=== PATIENT | female | born 2000 | race Caucasian/White ===

== ENCOUNTER 2019-04-06 18:30 | Outpatient (CLI) | payer BC ==
[~2019-04-06 18:30] MED LIST: ACET500C5 PO
[2019-04-06 18:43] VITALS: BP 128/75; PULSE 84; RESP 18
--- NOTE | 2019-04-06 20:22 | PN ---
Triage Information Date/Time April 06, 2019 Reason for visit: DFHR Weeks of Gestation 38 weeks /Para 1 para 0 Diabetes: none Hypertention: none Additional information 18-year-old G1, P0 with IUP at 38 weeks and care with [facility] and other [facility] presented to triage, was sent from the office due to NST/BPP due to decreased movement. Patient denies any leaking of fluid, vaginal bleeding or contractions. She denies any complication during her course. Objective Vital Signs Date Temp Pulse Resp B/P (MAP) Pulse Ox O2 O2 Flow FiO2 Time Delivery Rate 04/06/19 98.4 84 18 128/75 98 Room Air 18:43 (92) Heart Rate: 130's Heart Rate Comments NST category 1 and appropriate for gestational age and reactive No contraction on the monitor noted BP: 8/8 Contractions: None Exam Appearance: Alert and oriented x4 does not appear to be in any acute distress Abdomen: Soft, gravid, fundal height correlate with gestational age NST: Category 1 BP: 8/8 Amniotic fluid: 7.7 Results/Medications Imaging Results PROCEDURE: US Obstetrical , limited CLINICAL INDICATION: Biophysical profile for well being, decreased movement. TECHNIQUE: Multiple real-time images were acquired of the patient's maternal abdomen utilizing a curved array transducer. COMPARISON: 03/03/2019 FINDINGS: There is a single live intrauterine fetus in a cephalic presentation. The placenta is implanted anteriorly and is grade II. There is no placenta previa or abruptio evident. The amniotic fluid index measures 7.7 cm. The heart rate is 134 beats per minute. Biophysical profile: Tone: 2 breathin Gross body movement: 2 Amniotic fluid: 2 Biophysical profile score: 8/8 IMPRESSION: 1. Single live intrauterine fetus, cephalic presentation, unchanged. The heart rate is 134 bpm. 2. Anterior placenta, grade 2, no previa or abruptio is evident. 3. Amniotic fluid index 7.7 cm. 4. Biophysical profile score: 8/8. Disposition: Discharge Assessment/Plan IUP at 38 weeks ABHI: 7.7 cm Borderline low amniotic fluid noted Patient feels movement after hydration testing reassuring. No evidence of labor or SROM noted Patient will be discharged home. Strict labor precautions kick counts and follow-up less than 48 hours after hydration for repeat ABHI discussed with the patient Patient verbalized understanding. All questions were answered to patient with satisfaction. She will return to triage on Thursday to repeat ABHI after aggressive hydration. TONI MENDOZA MD Apr 06, 2019 20:22
== END 2019-04-06 20:35 | disposition home or self-care (01) ==
LOC: OBT 18:30 → L-D 18:34 → OBT 20:35
PROVIDERS: ATTEND Obstetrics & Gynecology
DX: O36.8130 Decreased fetal movements, third trimester, not applicable or unspecified (principal); Z3A.38 38 weeks gestation of pregnancy
CPT/HCPCS: 76818; Z7500; G0463

== ENCOUNTER 2019-04-08 15:58 | Outpatient (CLI) | payer BC ==
[~2019-04-08] VITALS: Ht 154.9 cm; Wt 79.9 kg
[2019-04-08 17:10] VITALS: Ht 154.9 cm; Wt 79.9 kg
[2019-04-08 17:11] VITALS: BP 111/66; PULSE 72; RESP 18
[2019-04-08] MEDS ORDERED: PNV11TAB PO (17:13)
--- NOTE | 2019-04-08 19:25 | PN ---
Triage Information Date/Time 04/08/1902/20/1923 Reason for visit: Oligohydramnios Weeks of Gestation 39w2d /Para Objective Vital Signs Date Temp Pulse Resp B/P (MAP) Pulse Ox O2 O2 Flow FiO2 Time Delivery Rate 04/08/19 98.5 72 18 111/66 17:11 (81) Results/Medications Results 24 hrs Laboratory Tests Test 04/08/19 17:06 Urine Color STRAW Urine Clarity CLEAR Urine pH 6.0 Urine Specific [place] 1.004 Urine Ketones NEGATIVE Urine Nitrite NEGATIVE Urine Bilirubin NEGATIVE Urine Urobilinogen NEGATIVE Urine Leukocyte Esterase NEGATIVE Urine Hemoglobin NEGATIVE Urine Glucose NEGATIVE Urine Total Protein NEGATIVE Imaging Results BPP 8/ ABHI 12.3 Disposition: Discharge Assessment/Plan A IUp 39w2d normal ABHI P RTH prn with routine labor instructions TARA BRAND MD Apr 08, 2019 19:25
--- NOTE | 2019-04-08 22:06 | TRIAGE ---
OB Triage Datetime Report Generated by CPN: 04/08/2019 22:05 Datetime: 04/08/2019 21:53 Labor Evaluation Frequency: 1-5 Monitor Mode: External Duration (sec)2399: 30-60 Quality: Mild Pattern: Normal: <= 5 Contractions in 10 Minutes Resting Tone [place]: Relaxed Heart Rate FHR Baseline Rate: 130 Monitor Mode: External US Variability: Moderate 6-25 bpm Accelerations: 15X15 Decelerations: None Category: Category I Comments: REVIEWED BY REBECCA JASSO TO D/C HOME Datetime: 04/08/2019 21:00 Labor Evaluation Frequency: 1-5 Monitor Mode: External Duration (sec)2399: 30-100 Quality: Mild Pattern: Normal: <= 5 Contractions in 10 Minutes Resting Tone [place]: Relaxed Heart Rate FHR Baseline Rate: 130 Monitor Mode: External US Variability: Moderate 6-25 bpm Accelerations: 15X15 Decelerations: None Category: Category I Datetime: 04/08/2019 20:11 Vaginal Exam Dilatation (cms): 0.0 Effacement (%): 0 Station: -3 Exam By: MICK Membrane Status: Intact Vaginal Bleeding: None Cervix, Consistency: Firm Cervix, Position: Posterior Presentation 'A': Cephalic Datetime: 04/08/2019 20:00 Labor Evaluation Frequency: IRREG Monitor Mode: External Duration (sec)2399: 30-80 Quality: Mild Pattern: Normal: <= 5 Contractions in 10 Minutes Resting Tone [place]: Relaxed Heart Rate FHR Baseline Rate: 130 Monitor Mode: External US Variability: Moderate 6-25 bpm Accelerations: 15X15 Decelerations: None Category: Category I Datetime: 04/08/2019 19:17 Assessment Type: Triage Maternal Assessment Level of Consciousness: Keenly Alert, Responsive DTR's/Clonus: DTRs 2+; No Clonus Headache: Denies Blurred Vision: No Respiratory Effort: Unlabored; Regular Rhythm; Equal Expansion Nausea/Vomiting: Denies RUQ Epigastric Pain: Denies Lower Extremities Edema: None Degree: None Upper Extremities Edema: None Degree: None Facial Edema: None Fall Risk Assessment History of Falling: (0) No Secondary Diagnosis: (0) No Ambulatory Aid: (0) Bedrest/Nurse Assist IV Therapy: (0) No Gait: (0) Normal/Bedrest/Immobile Mental Status: (0) Oriented to Own Ability Fall Score: 0 Fall Risk Score Definition: No Risk: No action required Pain Assessment Pain Scale: 0 Pain Presence: None/Denies Pain Type: N/A Datetime: 04/08/2019 17:21 Stage of : OB Triage Datetime: 04/08/2019 17:04 Stage of : OB Triage Assessment Type: Triage Maternal Assessment Level of Consciousness: Keenly Alert, Responsive DTR's/Clonus: DTRs 2+; No Clonus Headache: Denies Blurred Vision: No Respiratory Effort: Unlabored; Regular Rhythm; Equal Expansion Breath Sounds, Left: Clear and Equal Breath Sounds, Right: Clear and Equal Nausea/Vomiting: Denies RUQ Epigastric Pain: Denies Facial Edema: None Temperature Route: Axillary Fall Risk Assessment History of Falling: (0) No Secondary Diagnosis: (0) No Ambulatory Aid: (0) Bedrest/Nurse Assist IV Therapy: (0) No Gait: (0) Normal/Bedrest/Immobile Mental Status: (0) Oriented to Own Ability Fall Score: 0 Fall Risk Score Definition: No Risk: No action required Labor Evaluation Frequency: 0 Monitor Mode: External Pattern: Normal: <= 5 Contractions in 10 Minutes Resting Tone [place]: Relaxed Heart Rate FHR Baseline Rate: 145 Monitor Mode: External US Variability: Moderate 6-25 bpm Accelerations: 10X10 Decelerations: None Category: Category I Pain Assessment Pain Scale: 5 Pain Presence: Intermittent (Annotations: WHEN MAKING A SUDDEN MOVEMENT OR ROLLING OVER) Pain Type: Ache Pain Location: Perineum Pain Goal: 3 Pain Relief Measures: Comfort Measures Datetime: 04/08/2019 17:02 Time of Arrival: 04/08/2019 15:50 EGA: 39.2 Arrived By: Ambulatory Arrived From: Home Chief Complaint: FOLLOW UP LOW ABHI, DENIES BLEEDING, LEAKING OR UC'S Movement: Present Contractions: Denies/Absent Rupture of Membranes: Denies Vaginal Bleeding: None Vaginal Discharge: Denies Recent Sexual Intercouse: Denies Abdominal Trauma: Not Applicable Patient Complaints: None Time Provider Notified: 04/08/2019 17:20 Provider Notified: michell Initial Plan: MONITOR, BPP, u/a c_S Datetime: 04/06/2019 19:54 Stage of : OB Triage Datetime: 04/06/2019 19:42 Stage of : OB Triage Heart Rate FHR Baseline Rate: 150 FHR Baseline Changes: No Baseline Change Variability: Moderate 6-25 bpm Accelerations: 15X15 Decelerations: None Category: Category I Pain Presence: None/Denies Pain Type: N/A Datetime: 04/06/2019 19:22 Membrane Status: Intact Datetime: 04/06/2019 19:21 Stage of : OB Triage Respiratory Effort: Unlabored Breath Sounds, Left: Clear and Equal Breath Sounds, Right: Clear and Equal Labor Evaluation Frequency: OCCAS UTERINE IRRIT Monitor Mode: External Duration (sec)2399: 10-20 Pattern: Normal: <= 5 Contractions in 10 Minutes Resting Tone [place]: Relaxed Heart Rate FHR Baseline Rate: 150 Monitor Mode: External US FHR Baseline Changes: No Baseline Change Variability: Moderate 6-25 bpm Accelerations: 15X15 Decelerations: None Category: Category I Pain Assessment Pain Scale: 0 Pain Presence: None/Denies Pain Type: N/A Pain Assessment Comments: PATIENT STATES NO PRESSURE OR PAIN FELT Membrane Status: Intact Datetime: 04/06/2019 18:37 Stage of : OB Triage Time of Arrival: 04/06/2019 18:37 EGA: 39.0 Arrived By: Ambulatory Arrived From: Home Chief Complaint: sent from clinic for NST BPP for decreased movements Movement: Present Contractions: Denies/Absent Rupture of Membranes: Denies Vaginal Bleeding: None Vaginal Discharge: Denies Recent Sexual Intercouse: Denies Abdominal Trauma: Not Applicable Patient Complaints: None; Other Time Provider Notified: 04/06/2019 19:45 Provider Notified: DR LEE Initial Plan: NST/ BPP Maternal Assessment Level of Consciousness: Keenly Alert, Responsive DTR's/Clonus: DTRs 2+; No Clonus Headache: Denies Blurred Vision: No Respiratory Effort: Unlabored; Regular Rhythm; Equal Expansion Breath Sounds, Left: Clear and Equal Breath Sounds, Right: Clear and Equal Nausea/Vomiting: Denies RUQ Epigastric Pain: Denies Lower Extremities Edema: Bilateral Lower Extremities Degree: 1+ Upper Extremities Edema: None Degree: None Facial Edema: None Temperature Route: Oral Fall Risk Assessment History of Falling: (0) No Secondary Diagnosis: (0) No Ambulatory Aid: (0) Bedrest/Nurse Assist IV Therapy: (0) No Gait: (0) Normal/Bedrest/Immobile Mental Status: (0) Oriented to Own Ability Fall Score: 0 Fall Risk Score Definition: No Risk: No action required Monitor Mode: External Heart Rate FHR Baseline Rate: 145 Monitor Mode: External US Pain Assessment Pain Scale: 0
== END 2019-04-08 22:00 | disposition home or self-care (01) ==
LOC: L-D 15:58 → OBT 15:58 → L-D 16:22 → OBT 22:00
PROVIDERS: ATTEND Obstetrics & Gynecology
DX: O41.03X0 Oligohydramnios, third trimester, not applicable or unspecified (principal); Z3A.39 39 weeks gestation of pregnancy
CPT/HCPCS: 76818; 81003; 87086; Z7500; G0463

== ENCOUNTER 2019-04-14 09:00 | Inpatient (IN) | payer BC ==
[~2019-04-14] VITALS: Ht 154.9 cm; Wt 80.7 kg
[~2019-04-14 09:00] MED LIST changes: +PNV11TAB PO
[2019-04-14] MEDS ORDERED: LACTATED RINGER'S 1,000 ML IV PRN (10:23)
[2019-04-14 10:30] VITALS: Ht 154.9 cm; Wt 80.7 kg
[2019-04-14] MEDS ORDERED: IBUPROFEN 600 MG TAB PO PRN (10:30)
[2019-04-14] MEDS ORDERED: AMPICILLIN 2 GM/NS (PMX) 100 ML IV ONE (10:30)
[2019-04-14] MEDS ORDERED: OXYTOCIN 30 UNITS/LR 500 ML IV PRN (10:30)
[2019-04-14] MEDS ORDERED: OXYTOCIN 30 UNITS/LR 500 ML IV SCH ×2 (10:30)
[2019-04-14] MEDS ORDERED: METHYLERGONOVINE 0.2 MG INJ IM PRN (10:30)
[2019-04-14] MEDS ORDERED: BUTORPHANOL 2 MG INJ IV PRN ×2 (10:30)
[2019-04-14] MEDS ORDERED: LIDOCAINE 1% (MPF) 30 ML INJ INJ PRN (10:30)
[2019-04-14] MEDS ORDERED: CARBOPROST 250 MCG INJ IM PRN (10:30)
[2019-04-14] MEDS ORDERED: MISOPROSTOL 200 MCG TAB PR PRN (10:30)
[2019-04-14] MEDS: LACTATED RINGER'S 1,000 ML IV SCH ×2 (11:10→19:02)
[2019-04-14] MEDS: MISOPROSTOL 50 MCG CAPSULE PO SCH ×2 (12:30→16:29)
--- NOTE | 2019-04-14 15:13 | CONS ---
DATE OF ADMISSION: 04/14/2019 DATE OF CONSULTATION: 04/14/2019 DATE OF CONSULTATION: 04/14/2019. REASON FOR CONSULTATION: Preoperative evaluation prior to planned induction. HISTORY OF PRESENT ILLNESS: The patient is a 18-year-old female, G1, P0, at 40 weeks of with a history of congenital heart disease and surgery as a child who initially presented with a murmur and abnormal electrocardiogram. The patient had no complaints of significant dyspnea on exertion, chest pains. The patient, in evaluation, underwent a 2D echo that did reveal the patient to have a preserved ejection fraction with mild tricuspid regurgitation, trace mitral regurgitation, and a very mild pulmonic stenosis with a max peak gradient of 25 . Additionally, they have also obtained the patient's 2D echo done for a evaluation by small lot operator in 2017, and, at that time, the patient was noted to have a very minimal right to left shunting across a residual small VSD patch leak with a pulmonic gradient of 18, consistent with very mild pulmonic stenosis. PAST MEDICAL HISTORY: As above in HPI. MEDICATIONS CURRENTLY IN HOSPITAL: 1. Ampicillin. 3. IV fluid hydration. ALLERGIES: NO KNOWN DRUG ALLERGIES. SOCIAL HISTORY: No current tobacco, ETOH or illicit drug use. FAMILY HISTORY. No sudden cardiac or early CAD. REVIEW OF SYSTEMS: As above in HPI. CONSTITUTIONAL: No fevers, chills. PULMONARY: No current shortness of breath. CARDIOVASCULAR: Pulmonic stenosis, mild. GASTROINTESTINAL: No vomiting. GENITOURINARY: Notable for . MUSCULOSKELETAL: No significant myalgias or arthralgias. ENDOCRINE: No documented history of diabetes or thyroid disease. PHYSICAL EXAMINATION: VITAL SIGNS: Notable for afebrile, blood pressure 125/60, pulse 75. GENERAL: The patient is alert, awake, in no acute distress. NECK: JVP approximately 8 to 9 cm of water. CHEST: Fair air movement throughout. HEART: Regular rate and rhythm. Normal S1, S2. II/ systolic murmur. ABDOMEN: Positive bowel sounds, soft, notable for . EXTREMITIES: No significant pitting edema, 1+ pulses bilateral posterior tibial. LABORATORY DATA: From today, white count 10.5, hemoglobin 11.8, platelet count of 258. INR 0.85. IMAGING STUDIES: As above in HPI. No further imaging studies for my review at this time. ECG: No electrocardiograms for my review at this time. IMPRESSION: 1. Preoperative evaluation prior to planned induction for delivery of a 40-week infant in a patient with a history of congenital heart disease, status post- surgery as a child. 2. Pulmonic stenosis by 2D echo without significant change from echo from 2017 to now revealing very mild pulmonic stenosis which not to have hemodynamic consequence during this procedure with normal RV function. 3, H/O VSD s/p patch repair with no significant leak noted by echo 03/04/19 3. at 40 weeks. 4. Abnormal electrocardiogram with a history of baseline right bundle branch block and no signs of higher degrees of block. RECOMMENDATIONS: 1. At this time, would obtain a 12-lead EKG, no documented in the chart, and would check EKG post-delivery. Assess for any significant changes. 2. At this time, the patient is okay to proceed with induction given very mild pulmonic stenosis and as possible, would attempt to avoid significant swings in blood pressure or large fluid shifts, but induction and delivery should be tolerated well, given the very mild nature of the patient's pulmonic stenosis. 3. We will continue to follow along very closely with you postoperatively. Thank you for allowing me to take part in the care of this patient. I will continue to follow very closely with you with further recommendations to be made as the patient progresses through inpatient hospital clinical course. Dictated By: MIKHAIL EARL/MARTHA Conf#: [id number] DID#: [id number] CC: SILVERIO SON MD;*EndCC* MTDD
[2019-04-14] MEDS: AMPICILLIN 1 GM/NS (PMX) 50 ML IV SCH ×2 (16:29→20:34)
--- NOTE | 2019-04-14 17:10 | HP ---
Date/Time of Note Date/Time of Note DATE: 04/14/19 TIME: 17:08 OB - History Hx of Present Free Text/Dictation 18-year-old female 1 para 0 at 40 weeks plus gestation admitted for elective induction of labor Patient with possible right bundle branch block and had clearance of healthcare facility administrator on day of admission for induction Last Menstrual Period: Jun 08, 2018 Estimated Due Date: Apr 14, 2019 : 1 Para: 0 Care: Good Care Obstetrical Complications: None Medical Complications: None Past Family/Social History * Past Medical, Surgical, Family and Obstetric Histories reviewed from chart. Blood Type: O+ Rubella: immune RPR/VDRL: Negative GBS Status: Positive HBsAG: Negative OB Admission Exam Physical Exam HEENT: WNL Heart: Rhythm Normal Lungs: Clear, Equal Abdomen: WNL Extremities: Normal Reflexes: Normal Cervical Dilatation: None Effacement: 0% Station: -3 Membranes: Intact Heart Rate: 140's Accelerations: Accelerations Present Decelerations: No Decelerations Varibility: Marked Contractions on Admission: None Last 72 hours Lab Results CBC & BMP 04/14/19 10:22 OB Assessment/Plan Reason for admission: induction of labor Other Assessment: Term gestation Patient was cleared by healthcare facility administrator for induction Other plan: Start induction using Cytotec SILVERIO SON MD Apr 14, 2019 17:10
--- NOTE | 2019-04-14 19:13 | RADRPT ---
Vent Rate: 72 bpm RR Interval: 828 msec IN Interval: 138 msec QRS Duration: 134 msec QT Interval: 418 msec QTC Interval: 459 msec P-R-T Adams: 36 - 72 - 56 degrees Sinus rhythm...normal P axis, V-rate 50- 99 Right bundle branch block...QRSd>120, terminal axis(90,270) Electronically Signed By: Eliazar Pineda
[2019-04-14] MEDS ORDERED: FENTAnyl 2MCG/ML-ROPIV 0.2% 100 ML ONE (23:10)
--- NOTE | 2019-04-14 23:13 | PREAC ---
Date/Time of Note Date/Time of Note DATE: 04/14/19 TIME: 23:12 Anesthesia Eval and Record Evaluation Time Pre-Procedure Interview DATE: 04/14/19 TIME: 23:12 Age 18 Sex female NPO: 8 hrs Preoperative diagnosis labor Planned procedure epidural Past Medical History Past Medical History: Includes Cardio: Other (congenital heart disease with mild pul stenosis ) Surgery & Anesthesia Issues No known issue Meds Anticoagulation: No Beta Lilibeth within 24 hr: No Reason Beta Lilibeth not given: Pt. not on B-Lilibeth Active Scripts Acetaminophen* (Tylophen*) 500 Mg Capsule, 1 CAP PO Q6H PRN for PAIN AND OR ELEVATED TEMP, #14 CAP Prov:ROBSON CANADA MD 04/02/16 Reported Medications [id number] ( ) 1 Each Tablet, 1 TAB PO DAILY, TAB 04/08/19 Current Medications Lactated Ringer's 1,000 ml @ 125 mls/hr Q8H IV Last administered on 04/14/19at 19:02; Admin Dose 125 MLS/HR; Start 04/14/19 at 10:23 Ampicillin 50 ml @ 100 mls/hr Q4H IV Last administered on 04/14/19at 20:34; Admin Dose 100 MLS/HR; Start 04/14/19 at 14:30 Butorphanol Tartrate (Stadol) 1 mg Q2H PRN IV .PAIN SCALE 1-5; Start 04/14/19 at 10:30 Butorphanol Tartrate (Stadol) 2 mg Q2H PRN IV .PAIN SCALE 6-10; Start 04/14/19 at 10:30 Lidocaine (Xylocaine 1% (Mpf)) 30 ml ONCE PRN INJ .EPISIOTOMY; Start 04/14/19 at 10:30 Oxytocin/Lactated Ringer's 500 ml @ 500 mls/hr ONCE POST IV ; Start 04/14/19 at 10:30 Oxytocin/Lactated Ringer's 500 ml @ 125 mls/hr POST IV ; Start 04/14/19 at 10:30 Ibuprofen (Motrin) 600 mg ONCE PRN PO .PAIN 1-5; Start 04/14/19 at 10:30 Lactated Ringer's 1,000 ml @ 2,000 mls/hr Q30M PRN IV .ANESTHESIA; Start 04/14/19 at 10:23 Oxytocin/Lactated Ringer's 500 ml @ 0 mls/hr ONCE PRN IV .VAGINAL BLEEDING; Start 04/14/19 at 10:30 Methylergonovine Maleate (Methergine) 0.2 mg ONCE PRN IM .VAGINAL BLEEDING; Start 04/14/19 at 10:30 Carboprost Tromethamine (Hemabate) 250 mcg ONCE PRN IM .VAGINAL BLEEDING; Start 04/14/19 at 10:30 Misoprostol (Cytotec) 1,000 mcg ONCE PRN NV .VAGINAL BLEEDING; Start 04/14/19 at 10:30 Misoprostol (Cytotec 50 Mcg Capsule) 50 mcg Q4 PO Last administered on 04/14/19at 16:29; Admin Dose 50 MCG; Start 04/14/19 at 13:00 Meds reviewed: Yes Allergies Coded Allergies: No Known Allergy (Unverified , 04/02/16) Allergies Reviewed: Yes Labs/Studies Labs Reviewed: Reviewed by anesthesiologist Result Diagram: 04/14/19 1022 Laboratory Tests 04/14/19 10:22 Blood Bank Test 04/14/19 10:22 Antibody Screen NEGATIVE Blood Type O POSITIVE Rh Immune Globulin Candidate NO test: N/A Pre-procedure Exam Airway: Adequate mouth opening, Adequate thyromental dist Mallampati: Mallampati III Teeth: Normal Lung: Normal Heart: Normal ASA Physical Status ASA physical status: 2 Emergency: None Pre-operative Attestations Prior to commencing anesthesia and surgery, the patient was re-evaluated, there was verification of: *The patient's identity *The results of appropriate recent lab work and preoperative vital signs *The above evaluation not changing prior to induction *Anesthetic plan, risk benefits, alternative and complications discussed with pa deana/family; questions answered; patient/family understands, accepts and wishes to proceed. TOY ESTRADA DO Apr 14, 2019 23:13
[2019-04-14] MEDS ORDERED: FENTAnyl 2MCG/ML-ROPIV 0.2% 100 ML BAG EPI SCH (23:30)
[2019-04-14] MEDS ORDERED: NALOXONE (0.4 MG/ML) INJ IV PRN (23:30)
[2019-04-15] VITALS (7 sets, daily range): BP systolic 100–122; BP diastolic 49–56; PULSE 75–90; RESP 17–19
[2019-04-15] MEDS: LACTATED RINGER'S 1,000 ML IV SCH (00:17)
[2019-04-15] MEDS: AMPICILLIN 1 GM/NS (PMX) 50 ML IV SCH ×2 (00:17→06:01)
[2019-04-15] MEDS ORDERED: LACTATED RINGER'S 1,000 ML IV* SCH (06:23)
[2019-04-15] MEDS ORDERED: OXYTOCIN 30 UNITS/LR 500 ML IV SCH (06:23)
--- NOTE | 2019-04-15 06:23 | LDN ---
Date/Time of Note Date/Time of Note DATE: 04/15/19 TIME: 06:20 Delivery Summary of a viable babyboy weighing 3025 grams or 6# 11 oz, 19.5 " long, and with Apgars of 9/9. Weeks of Gestation 40w 2d Placenta Delivered: Spontaneously Meconium: none Episiotomy: No Perineal laceration: 2 Laceration repair: 2nd degree perineal laceration repaired with 3-0 chromic. Anesthesia type: Epidural Estimated blood loss: 200 Sponge & Needle done & correct: Yes All needle counts correct: Yes Any foreign bodies felt in the: No (vagina) Delivery Information Sex Sex: male Apgars 1 Minute: 9 5 Minute: 9 Suctioning Nose & mouth suctioned at don: Yes Delee suction performed: No Umbilical Cord Umbilical cord with: 3 Vessels Cord presentations: nuchal cord Nuchal cord present X: 1 Cord Blood was obtained: Yes Mother & Baby Disposition Disposition Mom & Baby to Maternity; Good: Yes Baby to NICU: No HEMANTH VIVEROS MD Apr 15, 2019 06:23
[2019-04-15] MEDS ORDERED: METHYLERGONOVINE 0.2 MG INJ IM PRN ×2 (06:30→12:30)
[2019-04-15] MEDS ORDERED: OXYTOCIN 30 UNITS/LR 500 ML IV PRN ×2 (06:30→12:30)
[2019-04-15] MEDS ORDERED: CARBOPROST 250 MCG INJ IM PRN ×2 (06:30→12:30)
[2019-04-15] MEDS ORDERED: MISOPROSTOL 200 MCG TAB PR PRN ×2 (06:30→12:30)
[2019-04-15] MEDS ORDERED: HYDROCODONE/APAP (5/325) TAB PO PRN ×3 (06:30→12:30)
[2019-04-15] MEDS ORDERED: BENZOCAINE 20% 56 ML SPRAY TOP PRN ×2 (06:30→12:30)
[2019-04-15] MEDS ORDERED: LANOLIN HPA 1 PKT TOP PRN ×2 (06:30→12:30)
[2019-04-15] MEDS ORDERED: IBUPROFEN 600 MG TAB PO ONE (08:30)
[2019-04-15] MEDS ORDERED: BUTORPHANOL 2 MG INJ ONE (09:18)
[2019-04-15] MEDS ORDERED: SOD CHLORIDE 0.9% 1,000 ML IV ONE (09:30)
[2019-04-15] MEDS ORDERED: FENTAnyl 50 MCG/ML VIAL ONE (09:34)
[2019-04-15] MEDS ORDERED: CEFAZOLIN 1 GM INJ ONE (09:34)
[2019-04-15] MEDS ORDERED: PROPOFOL 20 ML ONE (09:34)
[2019-04-15] MEDS ORDERED: MIDAZOLAM 1 MG/ML 2 ML INJ ONE (09:34)
--- NOTE | 2019-04-15 09:39 | PREAC ---
Date/Time of Note Date/Time of Note DATE: 04/15/19 TIME: 09:38 Anesthesia Eval and Record Evaluation Time Pre-Procedure Interview DATE: 04/15/19 TIME: 09:38 Age 18 Sex female NPO: 8 hrs Preoperative diagnosis post bleeding, retained placenta Planned procedure D&C and exam under anesthesia Past Medical History Past Medical History: Includes Heme: Anemia : : (1), Para: (1) Surgery & Anesthesia Issues No known issue Meds Anticoagulation: No Beta Lilibeth within 24 hr: No Reason Beta Lilibeth not given: Pt. not on B-Lilibeth Active Scripts Acetaminophen* (Tylophen*) 500 Mg Capsule, 1 CAP PO Q6H PRN for PAIN AND OR ELEVATED TEMP, #14 CAP Prov:ROBSON CANADA MD 04/02/16 Reported Medications [id number] ( 19) 1 Each Tablet, 1 TAB PO DAILY, TAB 04/08/19 Current Medications Oxytocin/Lactated Ringer's 500 ml @ 50 mls/hr Q10H IV Last administered on 04/15/19at 09:09; Admin Dose 50 MLS/HR; Start 04/15/19 at 06:23; Stop 04/15/19 at 16:22 Lactated Ringer's 1,000 ml @ 125 mls/hr Q8H IV* ; Start 04/15/19 at 06:23 Ibuprofen (Motrin) 600 mg Q6 PO ; Start 04/15/19 at 15:30 Acetaminophen/ Hydrocodone Bitart ([place] (5/325)) 1 tab Q4H PRN PO .PAIN 1-5; Start 04/15/19 at 06:30 Benzocaine (Dermoplast [place]) 1 spray BEDSIDE MEDICATION PRN TOP .HEMMORHOID/EPISIOTOMY PAIN; Start 04/15/19 at 06:30 Lanolin (Lanolin Hpa) 1 applic BEDSIDE MEDICATION PRN TOP .NIPPLES; Start 04/15/19 at 06:30 Diphtheria/ Tetanus/Acell Pertussis (Adacel) 0.5 ml ONCE ONCE IM* ; Start 04/17/19 at 09:00; Stop 04/17/19 at 09:01 Oxytocin/Lactated Ringer's 500 ml @ 0 mls/hr ONCE PRN IV .VAGINAL BLEEDING; Start 04/15/19 at 06:30 Methylergonovine Maleate (Methergine) 0.2 mg ONCE PRN IM .VAGINAL BLEEDING Last administered on 04/15/19at 09:11; Admin Dose 0.2 MG; Start 04/15/19 at 06:30 Carboprost Tromethamine (Hemabate) 250 mcg ONCE PRN IM .VAGINAL BLEEDING Last administered on 04/15/19at 09:11; Admin Dose 250 MCG; Start 04/15/19 at 06:30 Misoprostol (Cytotec) 1,000 mcg ONCE PRN IN .VAGINAL BLEEDING Last administered on 04/15/19at 09:19; Admin Dose 1,000 MCG; Start 04/15/19 at 06:30 Butorphanol Tartrate (Stadol) 2 mg ONCE ONCE IV Last administered on 04/15/19 09:28; Admin Dose 2 MG; Start 04/15/19 at 11:00; Stop 04/15/19 at 11:01 Sodium Chloride 1,000 ml @ 1,000 mls/hr Q1H ONCE IV ; Start 04/15/19 at 09:30; Stop 04/15/19 at 10:29 Meds reviewed: Yes Allergies Coded Allergies: No Known Allergy (Unverified , 04/02/16) Allergies Reviewed: Yes Labs/Studies Labs Reviewed: Reviewed by anesthesiologist Result Diagram: 04/14/19 1022 Laboratory Tests 04/14/19 10:22 Blood Bank Test 04/14/19 10:22 Antibody Screen NEGATIVE Blood Product Summary Counts Blood Type O POSITIVE Crossmatch Red Blood Cells Rh Immune Globulin Candidate NO test: Positive Studies: ECG (n/a), CXR (n/a) Pre-procedure Exam Airway: Adequate mouth opening, Adequate thyromental dist Mallampati: Mallampati II Teeth: Normal Lung: Normal Heart: Normal ASA Physical Status ASA physical status: 2 Emergency: E Planned Anesthetic General/MAC: ETT, LMA Planned Pain Management Parenteral pain med Pre-operative Attestations Prior to commencing anesthesia and surgery, the patient was re-evaluated, there was verification of: *The patient's identity *The results of appropriate recent lab work and preoperative vital signs *The above evaluation not changing prior to induction *Anesthetic plan, risk benefits, alternative and complications discussed with patient/family; questions answered; patient/family understands, accepts and wishes to proceed. POLO MERCHANT MD Apr 15, 2019 09:39
[2019-04-15] MEDS ORDERED: EPHEDrine 25 MG/5 ML SYG ONE ×2 (09:51→10:46)
[2019-04-15] MEDS ORDERED: ONDANSETRON 4 MG INJ ONE (09:51)
[2019-04-15] MEDS ORDERED: METOCLOPRAMIDE 10 MG INJ ONE (09:51)
[2019-04-15] MEDS ORDERED: DEXAMETHASONE 4 MG/ML 1 ML INJ ONE (09:51)
[2019-04-15] MEDS ORDERED: ALBUMIN HUMAN 5% 250 ML IV PRN (10:00)
[2019-04-15] MEDS ORDERED: FENTAnyl 50 MCG/ML VIAL IV PRN ×2 (10:00)
[2019-04-15] MEDS ORDERED: HYDROmorphONE 1 MG/5 ML IV SYRINGE IV PRN ×3 (10:00)
[2019-04-15] MEDS ORDERED: METOCLOPRAMIDE 10 MG INJ IV PRN (10:00)
[2019-04-15] MEDS ORDERED: ONDANSETRON 4 MG INJ IV PRN (10:00)
[2019-04-15] MEDS ORDERED: LABETALOL HCL 20MG INJ IV PRN (10:00)
[2019-04-15] MEDS ORDERED: MEPERIDINE 25 MG INJ IV PRN (10:00)
[2019-04-15] MEDS ORDERED: DIPHENHYDRAMINE 50 MG INJ IV PRN (10:00)
[2019-04-15] MEDS ORDERED: OXYCODONE/ACETAMINOPHEN (5/325) TAB PO PRN (10:00)
[2019-04-15] MEDS ORDERED: EPHEDrine 25 MG/5 ML SYG IV PRN (10:00)
[2019-04-15] MEDS ORDERED: HETASTARCH 6% NACL 500 ML ONE (10:42)
[2019-04-15] MEDS ORDERED: ALBUMIN HUMAN 5% 250 ML ONE (10:42)
--- NOTE | 2019-04-15 10:57 | QN ---
Documentation Comment Reported by Nurse,the patient had bleeding and received a dose of Hemabate and Methergine Cytotec 1000 given per rectum.Uterus if firm ,The decision is made to take her to OR for further evaluation ,Exam under anesthesia and possible D&C&Suction patient and her discussed extensively about the procedure, ,her attending informed and she is on his way to hospital Patient was taken to OR ,A large left vaginal vault was noticed that was repaired. At this time Got to the OR and took over the case,He repaired few butterfly laceration on right labia , Patient tolerated the procedure well and was transferred to Recovery room in stable condition,No Vaginal bleeding noticed at the end of case JOSEPH TATE M.D. Apr 15, 2019 10:57
[2019-04-15] MEDS ORDERED: BUTORPHANOL 2 MG INJ IV ONE (11:00)
--- NOTE | 2019-04-15 11:01 | PAC ---
Date/Time of Note Date/Time of Note DATE: 04/15/19 TIME: 11:01 Post-Anesthesia Notes Post-Anesthesia Note Last documented vital signs T: 96.7 Axillary Activity: WNL Respiratory function: WNL Cardiovascular function: WNL Mental status: Baseline Pain reasonably controlled: Yes Hydration appropriate: Yes Nausea/Vomiting absent: Yes POLO MERCHANT MD Apr 15, 2019 11:01
--- NOTE | 2019-04-15 11:10 | OPR ---
DATE OF OPERATION: 04/15/2019 PREOPERATIVE DIAGNOSIS: hemorrhage. POSTOPERATIVE DIAGNOSIS: Vaginal wall laceration, mostly on the right side down to the cervix. ATTENDING SURGEON: Chris Tate MD; Silverio Avina MD joined the team. ESTIMATED BLOOD LOSS: Less than 100. TECHNIQUE: The patient was taken to the operating room where general anesthesia was found to be adeq uate. The patient was placed in dorsal lithotomy position. After prep and drape, a weighted speculu m was placed inside the vaginal vault and the large laceration on the left vaginal vault was noticed that was repaired using 0 Vicryl and 2-0 Vicryl sutures. Hemostasis achieved on that side. A few la cerations on the other wall were repaired. At this time, Dr. Joe joined the team, and he is the p rivate physician for this patient. He took over and he repaired small laceration at the os and then hemostasis achieved. The patient tolerated the procedure well and was transferred to recovery room i n stable condition. There was no complication regarding this for the procedure. Dictated By: CHRIS TATE MD RG/NTS Conf#: [id number] DID#: [id number] CC: SILVERIO AVINA MD;*EndCC*
--- NOTE | 2019-04-15 11:27 | QN ---
Documentation Comment Was called for patient having profuse vaginal bleeding On-call physician was at patient bedside and decided to take the patient to the operating room for exam under anesthesia and possible dilatation and curettage if necessary With patient under general anesthesia on-call physician noticed a left-sided vaginal laceration which appeared deep and because the tissue was swollen the repair remained difficult however it was done. Dr. Galeana has dictated a s eparate note in regards to how the repair was performed Upon my arrival patient with vaginal packing and had superficial vaginal bleeding from the abrasions and hymen and introital tissues, these bleeding were controlled using 4-0 chromic multiple stitches and/or pressure on the tissue which stopped the bleeding The packs were removed and patient did not notice to have any further vaginal bleeding She was returned to supine position and was transferred to postanesthesia recovery room in stable condition SILVERIO SON MD Apr 15, 2019 11:27
[2019-04-15] MEDS ORDERED: ACETAMINOPHEN 1000MG/100ML IV 100 ML IVPB ONE (11:30)
[2019-04-15] MEDS ORDERED: CEFAZOLIN 2 GM/50 ML (PMX) 50 ML IVPB ONE (11:30)
[2019-04-15] MEDS: LACTATED RINGER'S 1,000 ML IV* SCH ×2 (12:29→22:26)
[2019-04-15] MEDS ORDERED: ZOLPIDEM 5 MG TAB PO PRN (12:30)
[2019-04-15] MEDS ORDERED: DIBUCAINE 1% 30 GM OINT TOP PRN (12:30)
--- NOTE | 2019-04-15 14:22 | CONS ---
Assessment/Plan Assessment/Plan Hospital Course (Demo Recall) IMPRESSION: 1. Preoperative evaluation prior to planned induction for delivery of a 40-week infant in a patient with a history of congenital heart disease, status post- surgery as a child.-now post-op s/p delivery c/b cervical laceration and sig blood loss requiring transfusion 2. Pulmonic stenosis by 2D echo without significant change from echo from 2017 to now revealing very mild pulmonic stenosis which not to have hemodynamic consequence during this procedure with normal RV function. 3. at 40 weeks.-now post-op s/p delivery 4. Abnormal electrocardiogram with a history of baseline right bundle branch block and no signs of higher degrees of block. 5. anemia-severe requiring transfusion 6. Cervical laceration c/b bleeding and severe anemia Recc: -OK to transfuse blood products/give IVF as necessary. Follow volume status and o2 saturation -Continue abx's -pain control Consultation Date/Type/Reason Admit Date/Time Apr 14, 2019 at 09:36 Initial Consult Date 04/14/19 Type of Consult Cardiology Reason for Consultation preop Requesting Provider: SILVERIO SON MD Date/Time of Note DATE: 04/15/19 TIME: 14:17 Exam/Review of Systems Vital Signs Vitals Intake and Output 04/14/19 04/14/19 04/15/19 1515:00 23:00 07:00 IntakeIntake Total 2100 ml 1625 ml OutputOutput Total 1565 ml BalanceBalance 2100 ml 60 ml Exam Exam Review of Systems: CONSTITUTIONAL: No fevers, chills. PULMONARY: No sob CARDIOVASCULAR: No chest pain/palpitations GASTROINTESTINAL: mild abd pain GENITOURINARY: No hematuria/dysuria. MUSCULOSKELETAL: No myagias/arthalgias. PSYCHIATRIC: The patient denies depression. NEUROLOGIC: No weakness Constitutional: alert, oriented Psych: no complaints Head: normocephalic ENMT: mucosa pink and moist Neck: supple, jvd (9 cm water) Respiratory: diminished breath sounds (at bases/B mildly) Cardiovascular: regular rate and rhythm Gastrointestinal: soft, non-tender Musculoskeletal: muscle tone (normal) Extremities: edema (trace/B) Neurological: other (No focal deficits) Labs Result Diagram: 04/15/19 1059 Results 24hrs Laboratory Tests Test 04/15/19 09:05 04/15/19 10:54 04/15/19 10:59 Bedside Glucose 101 White Blood Count 16.1 #H Red Blood Count 1.74 #L Hemoglobin 5.3 #*L Hematocrit 15.8 #L Mean Corpuscular Volume 90.8 Mean Corpuscular Hemoglobin 30.5 Mean Corpuscular Hemoglobin Concent 33.5 Red Cell Distribution Width 13.3 Platelet Count 142 # 139 L Mean Platelet Volume 11.8 H Immature Granulocytes % 0.900 H Neutrophils % 91.2 H Lymphocytes % 3.1 L Monocytes % 4.5 Eosinophils % 0.1 Basophils % 0.2 Nucleated Red Blood Cells % 0.0 Immature Granulocytes # 0.140 H Neutrophils # 14.6 H Lymphocytes # 0.5 L Monocytes # 0.7 Eosinophils # 0.0 Basophils # 0.0 Nucleated Red Blood Cells # 0.0 Pathologist Review (Hematology) YES Prothrombin Time 16.2 #H Prothrombin Time Ratio 1.3 INR International Normalized Ratio 1.29 Activated Partial Thromboplast Time 33.2 Thrombin Time 14.4 Medications Medications Current Medications Lactated Ringer's 1,000 ml @ 125 mls/hr Q8H IV* ; Start 04/15/19 at 12:29 Ibuprofen (Motrin) 600 mg Q6 PO ; Start 04/15/19 at 18:00 Acetaminophen/ Hydrocodone Bitart ([place] (5/325)) 1 tab Q4H PRN PO .PAIN 1-5; Start 04/15/19 at 12:30 Acetaminophen/ Hydrocodone Bitart ([place] (5/325)) 2 tab Q4H PRN PO .PAIN 6-10; Start 04/15/19 at 12:30 Zolpidem Tartrate (Ambien) 5 mg QHS PRN PO .INSOMNIA; Start 04/15/19 at 12:30 Senna/Docusate Sodium (Senokot-S) 1 tab BID PO ; Start 04/15/19 at 21:00 Magnesium Hydroxide (Milk Of Mag) 30 ml Q12 PO ; Start 04/15/19 at 21:00 Witch Cheryl/ Glycerin (Tucks Pads) 1 pad BEDSIDE MEDICATION PRN [place] .HEMORRHOID/EPISIOTOMY PAIN; Start 04/15/19 at 12:30 Benzocaine (Dermoplast [place]) 1 spray BEDSIDE MEDICATION PRN TOP .HEMMORHOID/EPISIOTOMY PAIN; Start 04/15/19 at 12:30 Dibucaine (Nupercainal) 1 applic BEDSIDE MEDICATION PRN TOP .HEMMORHOID/EPISIOTOMY; Start 04/15/19 at 12:30 Lanolin (Lanolin Hpa) 1 applic BEDSIDE MEDICATION PRN TOP .NIPPLES; Start 04/15/19 at 12:30 Measles/Mumps/ Rubella Vaccine Live (Mmr Ii Vaccine) 0.5 ml ONCE ONCE SC* ; Start 04/17/19 at 09:00; Stop 04/17/19 at 09:01 Varicella Virus Vaccine Live (Varivax Vaccine With Diluent) 1,350 unit ONCE ONCE SC* ; Start 04/17/19 at 09:00; Stop 04/17/19 at 09:01 Oxytocin/Lactated Ringer's 500 ml @ 0 mls/hr ONCE PRN IV .VAGINAL BLEEDING; Start 04/15/19 at 12:30 Methylergonovine Maleate (Methergine) 0.2 mg ONCE PRN IM .VAGINAL BLEEDING; Start 04/15/19 at 12:30 Carboprost Tromethamine (Hemabate) 250 mcg ONCE PRN IM .VAGINAL BLEEDING; Start 04/15/19 at 12:30 Misoprostol (Cytotec) 1,000 mcg ONCE PRN [place] .VAGINAL BLEEDING; Start 04/15/19 at 12:30 Cephalexin (Keflex) 500 mg Q6 PO ; Start 04/15/19 at 18:00 MIKHAIL SAUCEDO Apr 15, 2019 14:22
[2019-04-15] MEDS ORDERED: IBUPROFEN 600 MG TAB PO SCH (15:30)
[2019-04-15] MEDS: IBUPROFEN 600 MG TAB PO SCH ×2 (17:52→23:39)
[2019-04-15] MEDS: CEPHALEXIN 500 MG CAP PO SCH ×2 (17:52→23:39)
[2019-04-15] MEDS: MAGNESIUM HYDROXIDE 30ML CUP PO SCH (21:00)
[2019-04-15] MEDS: SENNA/DOCUSATE NA (8.6MG/50MG) TAB PO SCH (22:25)
[2019-04-15] MEDS: WITCH HAZEL/GLYCERIN PAD PR PRN (23:39)
[2019-04-16] VITALS (14 sets, daily range): BP systolic 94–112; BP diastolic 46–66; PULSE 69–90; RESP 17–18
[2019-04-16] MEDS: LACTATED RINGER'S 1,000 ML IV* SCH ×3 (05:14→21:22)
[2019-04-16] MEDS: CEPHALEXIN 500 MG CAP PO SCH ×3 (05:14→18:20)
[2019-04-16] MEDS: IBUPROFEN 600 MG TAB PO SCH ×3 (05:14→18:00)
[2019-04-16] MEDS: SENNA/DOCUSATE NA (8.6MG/50MG) TAB PO SCH ×2 (09:00→20:36)
[2019-04-16] MEDS: MAGNESIUM HYDROXIDE 30ML CUP PO SCH ×2 (09:00→20:36)
[2019-04-16] MEDS ORDERED: SOD CHLORIDE 0.9% 1,000 ML IV ONE (10:00)
--- NOTE | 2019-04-16 15:47 | CONS ---
Assessment/Plan Assessment/Plan Hospital Course (Demo Recall) IMPRESSION: 1. Preoperative evaluation prior to planned induction for delivery of a 40-week infant in a patient with a history of congenital heart disease, status post- surgery as a child.-now post-op s/p delivery c/b cervical laceration and sig blood loss requiring transfusion 2. Pulmonic stenosis by 2D echo without significant change from echo from 2017 to now revealing very mild pulmonic stenosis which not to have hemodynamic consequence during this procedure with normal RV function. 3. at 40 weeks.-now post-op s/p delivery 4. Abnormal electrocardiogram with a history of baseline right bundle branch block and no signs of higher degrees of block. 5. anemia-severe ongoing 6. Cervical laceration c/b bleeding and severe anemia requiring surgical intervention Recc: -OK to transfuse blood products/give IVF as necessary. Follow volume status and o2 saturation -follow HGB closely -Continue abx's -pain control Consultation Date/Type/Reason Admit Date/Time Apr 14, 2019 at 09:36 Initial Consult Date 04/14/19 Type of Consult Cardiology Reason for Consultation preop/pulmonic stenosis Requesting Provider: SILVERIO SON MD Date/Time of Note DATE: 04/16/19 TIME: 15:44 Exam/Review of Systems Vital Signs Vitals Vital Signs Date Temp Pulse Resp B/P (MAP) Pulse Ox O2 O2 Flow FiO2 Time Delivery Rate 04/16/19 90 18 105/54 Room Air 14:50 (71) 04/16/19 98.2 10:40 04/15/19 97 20:00 Intake and Output 04/15/19 04/15/19 04/16/19 1515:00 23:00 07:00 IntakeIntake Total 125 ml OutputOutput Total 2950 ml 1800 ml 800 ml BalanceBalance -2825 ml -1800 ml -800 ml Exam Exam Review of Systems: CONSTITUTIONAL: No fevers, chills. PULMONARY: No sob CARDIOVASCULAR: No chest pain/palpitations GASTROINTESTINAL: No nausea/vomiting. GENITOURINARY: No hematuria/dysuria. MUSCULOSKELETAL: No myagias/arthalgias. PSYCHIATRIC: The patient denies depression. NEUROLOGIC: No weakness Constitutional: alert Psych: no complaints Head: normocephalic ENMT: mucosa pink and moist Neck: supple, jvd (9 cm water) Respiratory: clear to auscultation Cardiovascular: regular rate and rhythm Gastrointestinal: soft, non-tender Musculoskeletal: muscle tone (normal) Extremities: edema (trace/B) Neurological: focal weakness (none) Labs Result Diagram: 04/16/19 0713 Results 24hrs Laboratory Tests Test 04/16/19 06:23 04/16/19 07:13 Lab Scanned Report REFERENCE LAB White Blood Count 14.0 H Red Blood Count 1.98 L Hemoglobin 5.9 *L Hematocrit 18.0 L Mean Corpuscular Volume 90.9 Mean Corpuscular Hemoglobin 29.8 Mean Corpuscular Hemoglobin Concent 32.8 Red Cell Distribution Width 15.3 H Platelet Count 133 L Mean Platelet Volume 11.5 H Immature Granulocytes % 0.500 H Neutrophils % 75.9 H Lymphocytes % 15.5 L Monocytes % 7.0 Eosinophils % 0.9 Basophils % 0.2 Nucleated Red Blood Cells % 0.0 Immature Granulocytes # 0.070 H Neutrophils # 10.6 H Lymphocytes # 2.2 Monocytes # 1.0 H Eosinophils # 0.1 Basophils # 0.0 Nucleated Red Blood Cells # 0.0 Medications Medications Current Medications Lactated Ringer's 1,000 ml @ 125 mls/hr Q8H IV* Last administered on 04/16/19at 05:14; Admin Dose 125 MLS/HR; Start 04/15/19 at 12:29 Ibuprofen (Motrin) 600 mg Q6 PO Last administered on 04/16/19at 15:26; Admin D ose 600 MG; Start 04/15/19 at 18:00 Acetaminophen/ Hydrocodone Bitart ([place] (5/325)) 1 tab Q4H PRN PO .PAIN 1-5; Start 04/15/19 at 12:30 Acetaminophen/ Hydrocodone Bitart ([place] (5/325)) 2 tab Q4H PRN PO .PAIN 6-10; Start 04/15/19 at 12:30 Zolpidem Tartrate (Ambien) 5 mg QHS PRN PO .INSOMNIA; Start 04/15/19 at 12:30 Senna/Docusate Sodium (Senokot-S) 1 tab BID PO Last administered on 04/15/19at 22:25; Admin Dose 1 TAB; Start 04/15/19 at 21:00 Magnesium Hydroxide (Milk Of Mag) 30 ml Q12 PO ; Start 04/15/19 at 21:00 Witch Cheryl/ Glycerin (Tucks Pads) 1 pad BEDSIDE MEDICATION PRN [place] .HEMORRHO ID/EPISIOTOMY PAIN Last administered on 04/15/19at 23:39; Admin Dose 40 PAD; Start 04/15/19 at 12:30 Benzocaine (Dermoplast [place]) 1 spray BEDSIDE MEDICATION PRN TOP .HEMMORHOID/EPISIOTOMY PAIN Last administered on 04/15/19at 23:39; Admin Dose 56 SPRAY; Start 04/15/19 at 12:30 Dibucaine (Nupercainal) 1 applic BEDSIDE MEDICATION PRN TOP .HEMMORHOID/EPISIOTOMY; Start 04/15/19 at 12:30 Lanolin (Lanolin Hpa) 1 applic BEDSIDE MEDICATION PRN TOP .NIPPLES; Start 04/15/19 at 12:30 Measles/Mumps/ Rubella Vaccine Live (Mmr Ii Vaccine) 0.5 ml ONCE ONCE SC* ; Start 04/17/19 at 09:00; Stop 04/17/19 at 09:01 Varicella Virus Vaccine Live (Varivax Vaccine With Diluent) 1,350 unit ONCE ONCE SC* ; Start 04/17/19 at 09:00; Stop 04/17/19 at 09:01 Oxytocin/Lactated Ringer's 500 ml @ 0 mls/hr ONCE PRN IV .VAGINAL BLEEDING; Start 04/15/19 at 12:30 Methylergonovine Maleate (Methergine) 0.2 mg ONCE PRN IM .VAGINAL BLEEDING; Start 04/15/19 at 12:30 Carboprost Tromethamine (Hemabate) 250 mcg ONCE PRN IM .VAGINAL BLEEDING; Start 04/15/19 at 12:30 Misoprostol (Cytotec) 1,000 mcg ONCE PRN [place] .VAGINAL BLEEDING; Start 04/15/19 at 12:30 Cephalexin (Keflex) 500 mg Q6 PO Last administered on 04/16/19at 15:21; Admin Dose 500 MG; Start 04/15/19 at 18:00 MIKHAIL SAUCEDO Apr 16, 2019 15:47
[2019-04-16] MEDS: FERROUS SULFATE (EC) 325 MG TAB PO SCH (16:00)
--- NOTE | 2019-04-16 16:10 | PN ---
Date/Time of Note Date/Time of Note DATE: 04/16/19 TIME: 16:06 Assessment/Plan VTE Prophylaxis Risk score (from Ns)>0 risk: 0 SCD applied (from Ns): No SCD contraindicated: low risk/ambulating Pharmacological prophylaxis: NA/contraindicated Pharm contraindication: low risk/ambulating Lines/Catheters IV [facility]from [facility] Saline Lock Assessment/Plan Assessment/Plan Status post hemorrhage So far patient has received 4 units of red blood cells and 2 units of FFP After 2 units of packed red cell and 1 unit of FFP hemoglobin was a slightly ra ised Will repeat hemoglobin hematocrit following day Continue to observe patient in house at least until tomorrow If patient is totally stable will DC home following day on p.o. antibiotic and ferrous sulfate and vitamin Result Diagram: 04/16/1913 Results 24hrs Laboratory Tests Test 04/16/19 06:23 04/16/19 07:13 Lab Scanned Report REFERENCE LAB White Blood Count 14.0 H Red Blood Count 1.98 L Hemoglobin 5.9 *L Hematocrit 18.0 L Mean Corpuscular Volume 90.9 Mean Corpuscular Hemoglobin 29.8 Mean Corpuscular Hemoglobin Concent 32.8 Red Cell Distribution Width 15.3 H Platelet Count 133 L Mean Platelet Volume 11.5 H Immature Granulocytes % 0.500 H Neutrophils % 75.9 H Lymphocytes % 15.5 L Monocytes % 7.0 Eosinophils % 0.9 Basophils % 0.2 Nucleated Red Blood Cells % 0.0 Immature Granulocytes # 0.070 H Neutrophils # 10.6 H Lymphocytes # 2.2 Monocytes # 1.0 H Eosinophils # 0.1 Basophils # 0.0 Nucleated Red Blood Cells # 0.0 Subjective 24 Hr Interval Summary Free Text/Dictation Currently denies headache and or dizziness Subjectively feels better Constitutional: no complaints, improved Eyes: no complaints ENT: no complaints Respiratory: no complaints Cardiovascular: no complaints Gastrointestinal: no complaints Genitourinary: no complaints Musculoskeletal: no complaints Skin: no complaints Neurologic: no complaints Endocrine: no complaints Lymphatic: no complaints Psychological: no complaints, nl mood/affect Immunologic: no complaints Exam/Review of Systems Exam Vitals Vital Signs Date Temp Pulse Resp B/P (MAP) Pulse Ox O2 O2 Flow FiO2 Time Delivery Rate 04/16/19 90 18 105/54 Room Air 14:50 (71) 04/16/19 98.2 10:40 04/15/19 97 20:00 Intake and Output 04/15/19 04/15/19 04/16/19 1515:00 23:00 07:00 IntakeIntake Total 125 ml OutputOutput Total 2950 ml 1800 ml 800 ml BalanceBalance -2825 ml -1800 ml -800 ml Exam Vital signs are stable and patient does not seem to be in acute distress Vaginal bleeding is minimal but fundus is a slightly tender Constitutional: alert, oriented, well developed Psych: no complaints, nl mood/affect Head: normocephalic, atraumatic Eyes: nl conjunctiva, EOMI, nl lids, nl sclera, PERRL ENMT: nl external ears & nose, nl lips & teeth, nl nasal mucosa & septum Neck: supple, non-tender Respiratory: clear to auscultation, normal air movement Cardiovascular: regular rate and rhythm, nl pulses Gastrointestinal: soft, nl liver, spleen, non-tender Genitourinary - Female: other (Intravaginal exam was performed very gently and no foreign object was felt inside) Musculoskeletal: nl extremities to inspection, nl gait and stance Extremities: normal pulses 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, nl mental status, nl speech, nl strength Skin: nl turgor; No rash or lesions Lymph: nl lymph nodes Results Results 24hrs Laboratory Tests Test 04/16/19 06:23 04/16/19 07:13 Lab Scanned Report REFERENCE LAB White Blood Count 14.0 H Red Blood Count 1.98 L Hemoglobin 5.9 *L Hematocrit 18.0 L Mean Corpuscular Volume 90.9 Mean Corpuscular Hemoglobin 29.8 Mean Corpuscular Hemoglobin Concent 32.8 Red Cell Distribution Width 15.3 H Platelet Count 133 L Mean Platelet Volume 11.5 H Immature Granulocytes % 0.500 H Neutrophils % 75.9 H Lymphocytes % 15.5 L Monocytes % 7.0 Eosinophils % 0.9 Basophils % 0.2 Nucleated Red Blood Cells % 0.0 Immature Granulocytes # 0.070 H Neutrophils # 10.6 H Lymphocytes # 2.2 Monocytes # 1.0 H Eosinophils # 0.1 Basophils # 0.0 Nucleated Red Blood Cells # 0.0 Medications Medication Current Medications Lactated Ringer's 1,000 ml @ 125 mls/hr Q8H IV* Last administered on 04/16/19at 05:14; Admin Dose 125 MLS/HR; Start 04/15/19 at 12:29 Ibuprofen (Motrin) 600 mg Q6 PO Last administered on 04/16/19at 15:26; Admin Dose 600 MG; Start 04/15/19 at 18:00 Acetaminophen/ Hydrocodone Bitart ([place] (5/325)) 1 tab Q4H PRN PO .PAIN 1-5; Start 04/15/19 at 12:30 Acetaminophen/ Hydrocodone Bitart ([place] (5/325)) 2 tab Q4H PRN PO .PAIN 6-10; Start 04/15/19 at 12:30 Zolpidem Tartrate (Ambien) 5 mg QHS PRN PO .INSOMNIA; Start 04/15/19 at 12:30 Senna/Docusate Sodium (Senokot-S) 1 tab BID PO Last administered on 04/15/19at 22:25; Admin Dose 1 TAB; Start 04/15/19 at 21:00 Magnesium Hydroxide (Milk Of Mag) 30 ml Q12 PO ; Start 04/15/19 at 21:00 Witch Cheryl/ Glycerin (Tucks Pads) 1 pad BEDSIDE MEDICATION PRN [place] .HEMORRHOID/EPISIOTOMY PAIN Last administered on 04/15/19at 23:39; Admin Dose 40 PAD; Start 04/15/19 at 12:30 Benzocaine (Dermoplast [place]) 1 spray BEDSIDE MEDICATION PRN TOP .HEMMORHOID /EPISIOTOMY PAIN Last administered on 04/15/19at 23:39; Admin Dose 56 SPRAY; Start 04/15/19 at 12:30 Dibucaine (Nupercainal) 1 applic BEDSIDE MEDICATION PRN TOP .HEMMORHOID/EPISIOTOMY; Start 04/15/19 at 12:30 Lanolin (Lanolin Hpa) 1 applic BEDSIDE MEDICATION PRN TOP .NIPPLES; Start 04/15/19 at 12:30 Measles/Mumps/ Rubella Vaccine Live (Mmr Ii Vaccine) 0.5 ml ONCE ONCE SC* ; Start 04/17/19 at 09:00; Stop 04/17/19 at 09:01 Varicella Virus Vaccine Live (Varivax Vaccine With Diluent) 1,350 unit ONCE ONCE SC* ; Start 04/17/19 at 09:00; Stop 04/17/19 at 09:01 Oxytocin/Lactated Ringer's 500 ml @ 0 mls/hr ONCE PRN IV .VAGINAL BLEEDING; Start 04/15/19 at 12:30 Methylergonovine Maleate (Methergine) 0.2 mg ONCE PRN IM .VAGINAL BLEEDING; Start 04/15/19 at 12:30 Carboprost Tromethamine (Hemabate) 250 mcg ONCE PRN IM .VAGINAL BLEEDING; Start 04/15/19 at 12:30 Misoprostol (Cytotec) 1,000 mcg ONCE PRN [place] .VAGINAL BLEEDING; Start 04/15/19 at 12:30 Cephalexin (Keflex) 500 mg Q6 PO Last administered on 04/16/19at 15:21; Admin Dose 500 MG; Start 04/15/19 at 18:00 SILVERIO SON MD Apr 16, 2019 16:10
[2019-04-16] MEDS ORDERED: CEPH500C PO (16:26)
[2019-04-16] MEDS ORDERED: IBUP-1542 PO (16:27)
[2019-04-16] MEDS ORDERED: FER325 PO (16:27)
[2019-04-16] MEDS ORDERED: PREN1TAB71 PO (16:28)
[2019-04-16] MEDS: PRENATAL VITAMIN PO SCH (18:00)
[2019-04-17] VITALS: BP 117/61; PULSE 62; RESP 18
[2019-04-17] MEDS: CEPHALEXIN 500 MG CAP PO SCH ×3 (00:07→12:43)
[2019-04-17] MEDS: IBUPROFEN 600 MG TAB PO SCH ×3 (00:07→12:43)
[2019-04-17] MEDS: WITCH HAZEL/GLYCERIN PAD PR PRN (03:34)
[2019-04-17 03:37] VITALS: BP 102/57; PULSE 66; RESP 18
[2019-04-17] MEDS: LACTATED RINGER'S 1,000 ML IV* SCH (04:29)
[2019-04-17 08:00] VITALS: BP 121/71; PULSE 64; RESP 16; RESP 64
[2019-04-17] MEDS ORDERED: DIPHTH/TET/ACEL PERTUSS (ADULT) 0.5 ML VIAL IM* ONE (09:00)
[2019-04-17] MEDS ORDERED: MEASLES,MUMPS,RUBELLA VACCINE INJ SC* ONE (09:00)
[2019-04-17] MEDS ORDERED: VARICELLA VACCINE LIVE/PF 1,350 UNIT/0.5 ML ML SC* ONE (09:00)
[2019-04-17] MEDS: MAGNESIUM HYDROXIDE 30ML CUP PO SCH (09:23)
[2019-04-17] MEDS: FERROUS SULFATE (EC) 325 MG TAB PO SCH (09:23)
[2019-04-17] MEDS: PRENATAL VITAMIN PO SCH (09:24)
[2019-04-17] MEDS: SENNA/DOCUSATE NA (8.6MG/50MG) TAB PO SCH (09:24)
--- NOTE | 2019-04-17 12:12 | DS ---
Date/Time of Note Date/Time of Note DATE: 04/17/19 TIME: 12:10 Obstetrical Discharge Record Final Diagnosis Final Diagnosis: Term delivered Other Final Diagnosis Status post vaginal delivery Status post severe hemorrhage Status post transfusion Vaginal Delivery Obstetrical Delivery: Spontaneous, Laceration, Repaired Complications Augmentation: No Induction: Yes Condition on Discharge Physical Assessment Last Vitals: See nurse's notes Voiding: Yes Bowel Movement: Yes Breast: Soft, non-tender, Filling Fundus: Firm Abdomen and Incision: Abdomen is soft with firm fundus Episiotomy: Perineum is not swollen anymore and appears to be healing very well No evidence of vaginal bleed Pelvic exam day before revealed no foreign material left inside the vagina Calf Tenderness: No Patient Condition: Good SILVERIO SON MD Apr 17, 2019 12:12
--- NOTE | 2019-04-17 12:13 | PD.PPDC ---
[facility] [employer] Discharge Instruction Provider Information Physician Information 18-year-old female had vaginal delivery with hemorrhage and had 4 units of packed cell transfusion with 2 FFP's Diagnosis [id number] Final Diagnosis: [id number] Status post vaginal delivery and transfusions Condition [id number] Patient Condition: [id number] Good Diet [id number] Diet: [id number] Resume Regular Diet Activity/Restrictions [id number] Activity: [id number] Normal Activity May Shower [id number] Restrictions: [id number] Nothing in the Vagina [id number] Return to Work or School: [id number] Jun 06, 2019 Follow-up Follow-up with Physician: 3, Day/Days (In clinic for follow-up) Return to clinic for Comment: Refer back to clinic if is fever and chills and or excessive bleeding SILVERIO SON MD Apr 17, 2019 12:13
--- NOTE | 2019-04-17 14:22 | CONS ---
Assessment/Plan Assessment/Plan Hospital Course (Demo Recall) IMPRESSION: 1. Preoperative evaluation prior to planned induction for delivery of a 40-week infant in a patient with a history of congenital heart disease, status post- surgery as a child.-now post-op s/p delivery c/b cervical laceration and sig blood loss requiring transfusion 2. Pulmonic stenosis by 2D echo without significant change from echo from 2017 to now revealing very mild pulmonic stenosis which not to have hemodynamic consequence during this procedure with normal RV function. 3. at 40 weeks.-now post-op s/p delivery 4. Abnormal electrocardiogram with a history of baseline right bundle branch block and no signs of higher degrees of block. 5. anemia-s/p transfusions with improvement 6. Cervical laceration c/b bleeding and severe anemia requiring surgical interve ntion Recc: -OK to transfuse further blood products/give IVF as necessary.Contineu to follow volume status and o2 saturation closely -follow HGB closely -Continue abx's -pain control Consultation Date/Type/Reason Admit Date/Time Apr 14, 2019 at 09:36 Initial Consult Date 04/14/19 Type of Consult Cardiology Reason for Consultation preop/pulmonic stenosis Requesting Provider: SILVERIO SON MD Date/Time of Note DATE: 04/17/19 TIME: 14:20 Exam/Review of Systems Vital Signs Vitals Vital Signs Date Temp Pulse Resp B/P (MAP) Pulse Ox O2 O2 Flow FiO2 Time Delivery Rate 04/17/19 98.1 64 16 121/71 Room Air 08:00 (88) 04/15/19 97 20:00 Intake and Output 04/16/19 04/16/19 04/17/19 1515:00 23:00 07:00 IntakeIntake Total 700 ml OutputOutput Total 1500 ml 400 ml BalanceBalance -800 ml -400 ml Exam Exam Review of Systems: CONSTITUTIONAL: No fevers, chills. PULMONARY: No sob CARDIOVASCULAR: No chest pain/palpitations GASTROINTESTINAL: No nausea/vomiting. GENITOURINARY: No hematuria/dysuria. MUSCULOSKELETAL: No myagias/arthalgias. PSYCHIATRIC: The patient denies depression. NEUROLOGIC: No weakness Constitutional: alert Psych: no complaints Head: normocephalic ENMT: mucosa pink and moist Neck: supple, jvd (8 cm water) Respiratory: diminished breath sounds Cardiovascular: regular rate and rhythm Gastrointestinal: soft, non-tender Musculoskeletal: muscle tone (normal) Extremities: edema (trace/B) Neurological: other (No focal deficits) Labs Result Diagram: 04/17/19 0701 Results 24hrs Laboratory Tests Test 04/17/19 07:01 White Blood Count 13.0 H Red Blood Count 2.75 #L Hemoglobin 8.1 #L Hematocrit 24.7 #L Mean Corpuscular Volume 89.8 Mean Corpuscular Hemoglobin 29.5 Mean Corpuscular Hemoglobin Concent 32.8 Red Cell Distribution Width 15.4 H Platelet Count 155 Mean Platelet Volume 11.7 H Immature Granulocytes % 1.500 H Neutrophils % 75.0 H Lymphocytes % 15.0 L Monocytes % 7.1 Eosinophils % 1.0 Basophils % 0.4 Nucleated Red Blood Cells % 0.2 H Immature Granulocytes # 0.200 H Neutrophils # 9.8 H Lymphocytes # 2.0 Monocytes # 0.9 Eosinophils # 0.1 Basophils # 0.1 Nucleated Red Blood Cells # 0.0 Medications Medications Current Medications Lactated Ringer's 1,000 ml @ 125 mls/hr Q8H IV* Last administered on 04/16/19at 05:14; Admin Dose 125 MLS/HR; Start 04/15/19 at 12:29 Ibuprofen (Motrin) 600 mg Q6 PO Last administered on 04/17/19at 12:43; Admin Dose 600 MG; Start 04/15/19 at 18:00 Acetaminophen/ Hydrocodone Bitart ([place] (5/325)) 1 tab Q4H PRN PO .PAIN 1-5; Start 04/15/19 at 12:30 Acetaminophen/ Hydrocodone Bitart ([place] (5/325)) 2 tab Q4H PRN PO .PAIN 6-10; Start 04/15/19 at 12:30 Zolpidem Tartrate (Ambien) 5 mg QHS PRN PO .INSOMNIA; Start 04/15/19 at 12:30 Senna/Docusate Sodium (Senokot-S) 1 tab BID PO Last administered on 04/17/19at 09:24; Admin Dose 1 TAB; Start 04/15/19 at 21:00 Magnesium Hydroxide (Milk Of Mag) 30 ml Q12 PO Last administered on 04/17/19at 09:23; Admin Dose 30 ML; Start 04/15/19 at 21:00 Witch Cheryl/ Glycerin (Tucks Pads) 1 pad BEDSIDE MEDICATION PRN [place] .HEMORRHOID/EPISIOTOMY PAIN Last administered on 04/17/19 03:34; Admin Dose 1 PAD; Start 04/15/19 at 12:30 Benzocaine (Dermoplast [place]) 1 spray BEDSIDE MEDICATION PRN TOP .HEMMORHOID/EPISIOTOMY PAIN Last administered on 04/15/19at 23:39; Admin Dose 56 SPRAY; Start 04/15/19 at 12:30 Dibucaine (Nupercainal) 1 applic BEDSIDE MEDICATION PRN TOP .HEMMORHOID/EPISIOTOMY; Start 04/15/19 at 12:30 Lanolin (Lanolin Hpa) 1 applic BEDSIDE MEDICATION PRN TOP .NIPPLES; Start 04/15/19 at 12:30 Oxytocin/Lactated Ringer's 500 ml @ 0 mls/hr ONCE PRN IV .VAGINAL BLEEDING; Start 04/15/19 at 12:30 Methylergonovine Maleate (Methergine) 0.2 mg ONCE PRN IM .VAGINAL BLEEDING; Start 04/15/19 at 12:30 Carboprost Tromethamine (Hemabate) 250 mcg ONCE PRN IM .VAGINAL BLEEDING; Start 04/15/19 at 12:30 Misoprostol (Cytotec) 1,000 mcg ONCE PRN [place] .VAGINAL BLEEDING; Start 04/15/19 at 12:30 Cephalexin (Keflex) 500 mg Q6 PO Last administered on 04/17/19at 12:43; Admin Dose 500 MG; Start 04/15/19 at 18:00 Prenat Multivit/ [place]/Iron/Folic Ac () 1 tab DAILY PO Last administered on 04/17/19 09:24; Admin Dose 1 TAB; Start 04/16/19 at 16:30 Ferrous Sulfate (Ferrous Sulfate (Ec)) 325 mg DAILY PO Last administered on 04/17/19 09:23; Admin Dose 325 MG; Start 04/16/19 at 16:30 MIKHAIL SAUCEDO Apr 17, 2019 14:22
--- NOTE | 2019-04-18 15:37 | DELSUM ---
Delivery Summary A-C Datetime Report Generated by CPN: 04/18/2019 15:37 DELIVERY PERSONNEL Director Of Promotions: HEATHER, HEENA MATERNAL INFORMATION Delivery Anesthesia: Epidural Medications in Delivery: LR W/30 UNITS PITOCIN Delivery QBL (ml): 200 Placenta Cultured: No Maternal Complications: Other Other Maternal Complications: HEART MURMUR LABOR SUMMARY EDC: 04/13/2019 00:00 No. Babies in Womb: 1 Attempted: No Labor Anesthesia: Epidural LABOR INFORMATION Reason for Induction: Postterm Onset of Labor: 04/14/2019 22:49 Complete Dilatation: 04/15/2019 05:15 Cervical Ripening Agents: Cytotec @ 50 Group B Beta Strep: Positive Antibiotics # of Doses: 5 Antibiotics Time of Last Dose: 04/15/2019 04:23 Steroids Given: None Reason Steroids Not Administered: Not Applicable MEMBRANES Membranes Rupture Method: Spontaneous Rupture of Membranes: 04/15/2019 05:15 Length of Rupture (hr): 0.57 Amniotic Fluid Color: Clear Amniotic Fluid Amount: Moderate Amniotic Fluid Odor: None STAGES OF LABOR Stage 1 hr: 6 Stage 1 min: 26 Stage 2 hr: 0 Stage 2 min: 34 Stage 3 hr: 0 Stage 3 min: 1 Total Time in Labor hr: 7 Total Time in Labor min: 1 VAGINAL DELIVERY Episiotomy: None Laceration Extension: Second Degree Laceration Type: Perineal Laceration Repair: Yes Initial Vag Sponge Count: 10 Final Vag Sponge Count: 10 Initial Vag Sharps Count: 1 Final Vag Sharps Count: 2 Sponge Count Correct: Yes; Vaginal Sweep Performed Sharps Count Correct: Yes BABY A INFORMATION Delivery Date/Time: 04/15/2019 05:49 Method of Delivery: Vaginal Born in Route : No : N/A Forceps: N/A Vacuum Extraction: N/A Shoulder Dystocia : N/A SHOULDER DYSTOCIA BABY A Delivery Date/Time: 04/15/2019 05:49 PRESENTATION/POSITION BABY A Presentation: Cephalic Cephalic Presentation: Vertex Breech Presentation: N/A PLACENTA INFORMATION BABY A Placenta Delivery Time : 04/15/2019 05:50 Placenta Method of Delivery: Spontaneous Placenta Status: Delivered SCORES BABY A Heart Rate 1 min: >100 bpm Resp Effort 1 min: Good Cry Reflex Irritability 1 min: Cough/Sneeze/Pulls Away Muscle Tone 1 min: Active Motion Color 1 min: Body [place], Extremit Blue Resuscitation Effort 1 min: Tactile Stimulation SCORE 1 MIN: 9 Heart Rate 5 min: >100 bpm Resp Effort 5 min: Good Cry Reflex Irritability 5 min: Cough/Sneeze/Pulls Away Muscle Tone 5 min: Active Motion Color 5 min: Body [place], Extremit Blue Resuscitation Effort 5 min: Tactile Stimulation SCORE 5 MIN: 9 INFANT INFORMATION BABY A Gestational Age at Delivery: 40.2 Gestational Status: Full Term- 39- 40.6 Weeks Infant Outcome : Liveborn, with signs of life Condition : Stable Infant Sex: Male IDENTIFICATION/MEDS BABY A ID Band Number: [id number] ID Band Location: Right Leg; Left Arm Sensor Applied: Yes Sensor Number: [id number] Sensor Location : Cord Clamp Vitamin K Given : Not Given Erythromycin Given: Not Given WEIGHT/LENGTH BABY A Infant Birthweight (gm): 3025 Infant Weight (lb): 6 Weight (oz): 11 Length (in): 19.50 Length (cm): 49.53 CORD INFORMATION BABY A Nuchal Cord : Around Neck x1, Tight Cord Blood Taken: Yes Infant Suction: Mouth; Nose ASSESSMENT BABY A Complications: Multiple Variable Decels Physical Findings at Delivery: Within Normal Limits Infant Respirations: Appears Normal [place] Repairer/ALS Called : Yes Care By: RT Transferred To: Remains with Mother
== END 2019-04-17 14:50 | disposition home or self-care (01) | DRG 806 ==
LOC: L-D 09:36 → PP1 04-15 08:43 → L-D 04-15 09:30 → PP1 04-15 17:35
PROVIDERS: ADMIT Obstetrics & Gynecology; ATTEND Obstetrics & Gynecology
PROC: 10E0XZZ Delivery of Products of Conception, External Approach (ICD-10-PCS; principal; 2019-04-15)
PROC: 0KQM0ZZ Repair Perineum Muscle, Open Approach (ICD-10-PCS; 2019-04-15)
PROC: 30233L1 Transfusion of Nonautologous Fresh Plasma into Peripheral Vein, Percutaneous Approach (ICD-10-PCS; 2019-04-15)
PROC: 30233N1 Transfusion of Nonautologous Red Blood Cells into Peripheral Vein, Percutaneous Approach (ICD-10-PCS; 2019-04-15)
PROC: 30233K1 Transfusion of Nonautologous Frozen Plasma into Peripheral Vein, Percutaneous Approach (ICD-10-PCS; 2019-04-15)
DX: O70.1 Second degree perineal laceration during delivery (principal); D62 Acute posthemorrhagic anemia; Z37.0 Single live birth; O99.02 Anemia complicating childbirth; O48.0 Post-term pregnancy; Z3A.40 40 weeks gestation of pregnancy; O69.81X0 Labor and delivery complicated by cord around neck, without compression, not applicable or unspecified
CPT/HCPCS: 36430; 62322; 76815; 82962; 85025; 85049; 85610; 85670; 85730; 86592; 86850; 86900; 86901; 86920; 87340; 90716; 93005; 99464; J0131; J0290; J0595; J0690; J1100; J2250; J2405; J2590; J2765; J3010; J7030; J7120; P9016; P9045; P9059